=== PATIENT | male | born 1955 | race Caucasian/White ===

== ENCOUNTER → 2018-09-27 | Outpatient (CLI) | payer BC ==
[2018-09-27 09:32] LABS: Blood Urea Nitrogen 26 mg/dL (9-20)
--- NOTE | 2018-09-27 11:45 | CT ---
EXAMINATION TYPE: CT pelvis w con DATE OF EXAM: 09/27/2018 COMPARISON: None. HISTORY: Prostate staging CA, history of recent positive biopsy. CT DLP: 526.5 mGycm Automated exposure control for dose reduction was used. CONTRAST: Performed with IV Contrast, patient injected with 100 mL of Isovue 300. FINDINGS: Visualized bowel shows no suspicious dilatation. Some diverticula in the left and sigmoid colon are p resent. No CT evidence for acute diverticulitis. Prostate gland is enlarged in size bulging on bladder base, slightly heterogeneous hyperdensity along right peripheral zone mid to basilar segment near axial image 50 could reflect recent biopsy-proven carcinoma. Prostatic capsule appears grossly intact on CT. No suspicious adjacent adenopathy is seen. Adjacent pelvic phleboliths are present. Seminal vesicles felt within normal limits 47. Visualized portion of both kidneys show satisfactory excretion. Bladder is felt within normal limits. No concerning pelvic fluid collection is seen. Mild to moderate narrowing and spurring of both hip valeria ints is present. There is mild to moderate narrowing L4-L5 and L5-S1 levels. There is grade 1 retroli sthesis of L4 on L5. No suspicious focal sclerotic lesion is present. Mild degenerative changes bilat eral sacroiliac joints is seen. IMPRESSION: NO SUSPICIOUS PELVIC ADENOPATHY OR OSSEOUS METASTATIC DISEASE .
--- NOTE | 2018-09-27 13:45 | NM ---
EXAMINATION TYPE: NM bone scan whole body DATE OF EXAM: 09/27/2018 COMPARISON: Correlation CT same day HISTORY: 62-year-old male prostate cancer Technique: Delayed whole-body scanning was performed following the injection of 24.0 mCi Tc 99m MDP. Images acquired 3.25 hours post injection. FINDINGS: Some mild scattered degenerative uptake along the posterior elements of the mid to lower thoracic spi ne. No suspicious focal accumulation of tracer activity to suggest osseous metastatic disease. IMPRESSION: No scintigraphic evidence for osseous metastatic disease.
== END | disposition home or self-care (01) ==
LOC: RADNMMAIN 08:37
PROVIDERS: ATTEND Urology
DX: C61 Malignant neoplasm of prostate (principal)
CPT/HCPCS: 82565; 84520; 72193; 36415; 78306; A9503; Q9967

== ENCOUNTER → 2018-10-18 | Outpatient (CLI) | payer BC ==
[2018-10-18 09:03] LABS: Basophils # (A) 0.1 k/uL (0-0.2); Basophils % (A) 1 %; Eosinophils # (A) 0.1 k/uL (0-0.7); Eosinophils % (A) 2 %; HCT 38.7 % (39.0-53.0); HGB 12.6 gm/dL (13.0-17.5); Lymphocytes % (A) 35 %; MCH 28.6 pg (25.0-35.0); MCHC 32.6 g/dL (31.0-37.0); MCV 87.9 fL (80.0-100.0); Mean Platelet Volume 6.3; Monocytes # (A) 0.3 k/uL (0-1.0); Monocytes % (A) 6 %; Neutrophils # (A) 3.1 k/uL (1.3-7.7); Neutrophils % (A) 55 %; Platelet Count 286 k/uL (150-450); RDW 13.3 % (11.5-15.5); WBC 5.5 k/uL (3.8-10.6)
--- NOTE | 2018-10-18 11:15 | XR ---
EXAMINATION TYPE: XR chest 2V DATE OF EXAM: 10/18/2018 COMPARISON: None HISTORY: 63-year-old male preoperative evaluation TECHNIQUE: Frontal and lateral views FINDINGS: The cardiomediastinal silhouette, aorta, and pulmonary vasculature are within normal limits. Lungs an d pleural spaces are clear. IMPRESSION: No acute cardiopulmonary process.
[2018-10-18 17:44] LABS: Albumin 4.5 g/dL (3.80-4.90); Albumin/Globulin Ratio 2.37 (1.60-3.17); Anion Gap 10.5 mmol/L (4.00-12.00); Calcium 9.7 mg/dL (8.7-10.3); Carbon Dioxide 27.5 mmol/L (21.6-31.8); Globulin 1.9 g/dL (1.6-3.3); Potassium 4.6 mmol/L (3.5-5.5); Total Bilirubin 0.7 mg/dL (0.2-1.2); Total Protein 6.4 g/dL (6.2-8.2)
== END | disposition home or self-care (01) ==
LOC: LABWHC1 07:52
PROVIDERS: ATTEND Urology
DX: Z01.818 Encounter for other preprocedural examination (principal); Z01.812 Encounter for preprocedural laboratory examination; C61 Malignant neoplasm of prostate
CPT/HCPCS: 36415; 71046; 80053; 85025; 93005

== ENCOUNTER → 2018-12-08 | Outpatient (CLI) | payer BC | END | disposition home or self-care (01) | LOC: LABWHC1 08:57 | PROVIDERS: ATTEND Urology | DX: C61 Malignant neoplasm of prostate (principal); Z90.79 Acquired absence of other genital organ(s) | CPT/HCPCS: 36415; 84153 ==

== ENCOUNTER 2021-08-12 11:22 | Emergency (ER) | payer BC, MEDICARE ==
[2021-08-12] MEDS ORDERED: BAMLANIVIMAB (EUA) 700 MG, ETESEVIMAB (EUA) 1,400 MG in SODIUM CHLORIDE 0.9% 100 ML IVPB ONE (13:45)
[2021-08-12] MEDS ORDERED: SODIUM CHLORIDE 0.9% 50 ML IVPB ONE (13:45)
--- NOTE | 2021-08-12 14:19 | ED ---
General Adult HPI - General Chief complaint: Recheck/Abnormal Lab/Rx Stated complaint: Covid exposure/symptoms Time Seen by Provider: 08/12/21 12:43 Source: patient, RN notes reviewed Mode of arrival: ambulatory Limitations: no limitations - History of Present Illness Initial comments: This a 65-year-old male presents emergency Department chief complaint of COVID- 19. Patient states that started last Wednesday when he lost his taste and smell. Patient states that he has not gotten any better. Patient had no prior vaccine no prior COVID-19 infection. Patient states he has not cough, bodyaches mild nasal congestion and headache. - Related Data Allergies Allergy/AdvReac Type Severity Reaction Status Date / Time No Known Allergies Allergy Verified 08/12/21 11:41 Review of Systems ROS Statement: Those systems with pertinent positive or pertinent negative responses have been documented in the HPI. ROS Other: All systems not noted in ROS Statement are negative. Past Medical History Past Medical History: Diabetes Mellitus, Hypertension History of Any Multi-Drug Resistant Organisms: None Reported Past Surgical History: Prostate Surgery Past Psychological History: No Psychological Hx Reported Smoking Status: Never smoker Past Alcohol Use History: None Reported Past Drug Use History: None Reported General Exam Limitations: no limitations General appearance: alert, in no apparent distress Head exam: Present: atraumatic, normocephalic, normal inspection Eye exam: Present: normal appearance, PERRL, EOMI. Absent: scleral icterus, conjunctival injection, periorbital swelling ENT exam: Present: normal exam, normal oropharynx, mucous membranes moist Neck exam: Present: normal inspection, full ROM. Absent: tenderness, meningismus, lymphadenopathy Respiratory exam: Present: normal lung sounds bilaterally. Absent: respiratory distress, wheezes, rales, rhonchi, stridor Cardiovascular Exam: Present: regular rate, normal rhythm, normal heart sounds. Absent: systolic murmur, diastolic murmur, rubs, gallop, clicks GI/Abdominal exam: Present: soft, normal bowel sounds. Absent: distended, tenderness, guarding, rebound, rigid Course Vital Signs 08/12/21 11:38 Temperature 96.9 F L Pulse Rate 108 H Respiratory 19 Rate Blood Pressure 115/69 O2 Sat by Pulse 96 Oximetry Medical Decision Making - Medical Decision Making Patient received monoclonal antibodies will be discharged stable condition. - Lab Data Lab Results 08/12/21 Range/Units 11:45 Coronavirus (PCR) Detected A (Not Detectd) Disposition Clinical Impression: COVID-19 Disposition: HOME SELF-CARE Condition: Stable Instructions (If sedation given, give patient instructions): Coronavirus Disease 2019 (COVID-19) Additional Instructions: Please return to the Emergency Department if symptoms worsen or any other concerns. Is patient prescribed a controlled substance at d/c from ED?: No Referrals: Everton Maldonado MD [Primary Care Provider] - 1-2 days Time of Disposition: 14:18
[2021-08-12 15:09] VITALS: BP 124/65; PULSE 100; RESP 18; TEMP 98.7
== END 2021-08-12 15:28 | disposition home or self-care (01) ==
LOC: EC 11:22
DX: U07.1 COVID-19 (principal); E11.9 Type 2 diabetes mellitus without complications; I10 Essential (primary) hypertension
CPT/HCPCS: 87635; 99283; J3490